=== PATIENT | female | born 1955 | race Hispanic/Latino ===

== ENCOUNTER → 2019-01-23 | Outpatient (CLI) | payer OTHER ==
[~2019-01-23] MED LIST: HYDR25TA PO; INSLAN SQ; LISI-613 PO; METF-446 PO; PIOG30TA10 PO
== END | disposition home or self-care (01) ==
LOC: RAH 08:30
PROVIDERS: ATTEND Family Medicine
DX: Z12.31 Encounter for screening mammogram for malignant neoplasm of breast (principal)
CPT/HCPCS: 77067

== ENCOUNTER → 2024-09-25 | Outpatient (CLI) | payer OTHER ==
[~2024-09-25] MED LIST changes: -LISI-613 PO; +LISI20TA24 PO
[2024-09-25 12:29] LABS: ALBUMIN 3.4 g/dL (3.5-5.0); BILIRUBIN,TOTAL 0.2 mg/dL (0.2-1.0); CREATININE 1.1 mg/dL (0.5-1.0); POTASSIUM 4.7 mmol/L (3.5-5.1); TOTAL PROTEIN, SERUM 6.4 g/dL (6.0-8.3)
== END | disposition home or self-care (01) ==
LOC: LAB 08:08
PROVIDERS: ATTEND Internal Medicine Cardiovascular Disease
DX: I10 Essential (primary) hypertension (principal)
CPT/HCPCS: 36415; 80053

== ENCOUNTER → 2024-12-14 | Outpatient (CLI) | payer OTHER ==
--- NOTE | 2024-12-19 00:52 | HMCSR ---
APPROVED REPORT EXAM: Two-dimensional and M-mode echocardiogram with Doppler and color Doppler. INDICATION ICD: R01.1 Cardiac murmur, unspecified 2D Dimensions RVDd3.7 cmLVEF(%)64.7 (>50%)LVED Vol(simp.)108.0 mL IVSd1.4 (0.7-1.1cm)FS(%)35 %LVES Vol(simp.)45.0 mL LVDd4.2 (3.8-5.6cm)Ao Root(2D)3.4 (2.0-3.7cm)LVEF(%, simp.)58 % PWd1.2 (0.7-1.1cm)LVOT diam2.1 (1.8-2.4cm)LA ESV INDEX (BP)33.25 mL/m2 LVDs2.7 (2.5-4.0cm)IVC diam1.7 cm Aortic Valve AoV Vmax1.7 m/Zane Peak GR11.7 mmHgLVOT Vmax1.3 m/s AoV VTI0.4 mAo Mean GR7.1 mmHgLVOT VTI0.35 m KEVIN (VMAX)2.8 cm2AVA (VTI) 2.8 cm2 Mitral Valve MV E Vmax97.1 cm/sDECEL Dbvf582 ms MV A Jaki629.1 cm/sP 1/2 T61 ms E/A ratio0.8MVA (PHT)3.6 cm2 MR Max PG101 mmHg TDI E/E' Zwyqdh38.2E/E' Sxpflyl50.5 Pulmonary Valve PV Vmax1.4 m/sPV VTI0.28 mPV Mean GR4 mmHg PV Peak GR7.5 mmHg Tricuspid Valve TR Vmax3.0 m/sRAP (EST) 3 zjNkNTBS20.6 mmHg TR Peak GR35.6 mmHg Left Ventricle The left ventricle is normal in size. No regional wall motion abnormalities noted. Mild concentric le ft ventricular hypertrophy. Left ventricular systolic function is normal, estimated LVEF is 55-60%. G rade 1 diastolic dysfunction Right Ventricle The right ventricle is normal size. The right ventricular systolic function is normal. Atria The left atrium is mildly dilated. The right atrium size is normal. Aortic Valve Aortic valve is trileaflet. The leaflets are mildly thickened and calcified. Trace aortic regurgitati on. There is aortic sclerosis without stenosis. Mitral Valve Mild mitral annular calcification is noted. The leaflets are mildly thickened and calcified. Trace mi tral regurgitation. There is no mitral valve stenosis. Tricuspid Valve The tricuspid valve is normal in structure and function. Mild tricuspid regurgitation. RVSP is 36 mmH g. Pulmonic Valve Pulmonic valve is not well visualized. Great Vessels The aortic root is normal in size. The IVC is normal in size and collapses >50% with inspiration. Pericardium No pericardial effusion. Conclusion The left atrium is mildly dilated. Mild concentric left ventricular hypertrophy. No regional wall motion abnormalities noted. Left ventricular systolic function is normal, estimated LVEF is 55-60%. Grade 1 diastolic dysfunction Trace aortic regurgitation. Trace mitral regurgitation. Mild tricuspid regurgitation. PASP is 39 mmHg. No pericardial effusion.
--- NOTE | 2024-12-19 01:08 | HMCSR ---
APPROVED REPORT Bilateral Lower Extremity Venous Study for DVT., Venous Competence. Indications Ulcer, i87.1,i87.2 Vein Imaging CFV (R): Normal flow, augmentation and compression. No evidence of DVT. 13.5mm 978ms of reflux. SFJ (R): Normal flow, augmentation and compression. No evidence of DVT. FEM (R): Normal flow, augmentation and compression. No evidence of DVT. POP (R): Normal flow, augmentation and compression. No evidence of DVT. DFV (R): Normal flow, augmentation and compression. No evidence of DVT. PTV (R): Normal flow, augmentation and compression. No evidence of DVT. Peroneals (R): Not VisualizedCFV (L): Normal flow, augmentation and compression. No evidence of DVT. 10.7mm 706ms of reflux. SFJ (L): Normal flow, augmentation and compression. No evidence of DVT. FEM (L): Normal flow, augmentation and compression. No evidence of DVT. POP (L): Normal flow, augmentation and compression. No evidence of DVT. DFV (L): Normal flow, augmentation and compression. No evidence of DVT. PTV (L): Normal flow, augmentation and compression. No evidence of DVT. Peroneals (L): Not Visualized Technologist Impression Deep veins of the bilateral lower extremities appear patent and compressible without thrombus. No evidence of deep venous reflux. Superficial venous insufficiency in the RGSV and LGSV junction. RGSV junction 68mm 1144ms thigh 5.4mm 0.0ms knee 5.0mm 0.0ms calf 4..4mm 533ms RSSV prox 2.5mm 0.0ms mid 2.7mm 0.0ms LGSV junction 6.3mm 628ms thigh 4.4mm 0.0ms knee 4.1mm 0.0ms calf 3.6mm 0.0ms LSSV prox 3.7mm 0.0ms mid 2.3mm 0.0ms Conclusion Deep veins of the bilateral lower extremities appear patent and compressible without thrombus. There is deep venous reflux seen in the right CFV (978ms). There is no significant deep venous reflu x seen in the left lower extremity. There is significant superficial venous reflux seen in the RGSV (junction 68mm 1144ms, calf 4..4mm 53 3ms) and LGSV (junction 6.3mm 628ms). The above-mentioned findings are diagnostic for chronic venous insufficiency affecting the bilateral lower extremities. Conclusion Deep veins of the bilateral lower extremities appear patent and compressible without thrombus. There is deep venous reflux seen in the right CFV (978ms). There is no significant deep venous reflu x seen in the left lower extremity. There is significant superficial venous reflux seen in the RGSV (junction 68mm 1144ms, calf 4..4mm 53 3ms) and LGSV (junction 6.3mm 628ms). The above-mentioned findings are diagnostic for chronic venous insufficiency affecting the bilateral lower extremities.
== END | disposition home or self-care (01) ==
LOC: SHCH 09:35
PROVIDERS: ATTEND Internal Medicine Cardiovascular Disease
DX: I08.3 Combined rheumatic disorders of mitral, aortic and tricuspid valves (principal); I70.0 Atherosclerosis of aorta; R01.1 Cardiac murmur, unspecified; I87.1 Compression of vein
CPT/HCPCS: 93306; 93970

== ENCOUNTER 2025-03-14 06:06 | Day surgery (SDC) | payer OTHER ==
[2025-03-09 13:10] LABS: BASOPHILS # (AUTO) 0.05 K/uL (0.00-0.20); BASOPHILS % (AUTO) 0.6 % (0.0-5.0); EOSINOPHILS # (AUTO) 0.24 K/uL (0.00-0.70); EOSINOPHILS % (AUTO) 3.1 % (0.0-8.0); HEMATOCRIT 38.5 % (36-48); IMMATURE GRANULOCYTE ABSOLUTE 0.03 K/uL (0-1); LYMPHOCYTES # (AUTO) 1.5 K/uL (1.0-4.8); MEAN CORPUSCULAR HEMOGLOBIN 26.1 pg (27.0-33.0); MEAN CORPUSCULAR HGB CONC 30.1 g/dL (32.0-36.0); MEAN CORPUSCULAR VOLUME 86.7 fL (79-99); MONOCYTES # (AUTO) 0.8 K/uL (0.1-1.0); MONOCYTES % (AUTO) 10.8 % (3.0-13.0); NEUTROPHILS # (AUTO) 5.1 K/uL (1.8-7.7); NEUTROPHILS % (AUTO) 66.1 % (40.0-77.0); PLATELET COUNT (AUTO) 285 K/uL (130-400); RED BLOOD CELL COUNT(AUTO) 4.44 MIL/uL (4.00-5.50); RED CELL DISTRIBUTION WIDTH 13.8 % (11.0-15.5); WHITE BLOOD COUNT (AUTO) 7.7 K/uL (4.8-10.8)
[2025-03-09 13:19] LABS: POTASSIUM 4.6 mmol/L (3.5-5.1)
[2025-03-09 13:22] VITALS: BP 201/56; PULSE 69; RESP 18; TEMP 98.2
[2025-03-09 13:23] LABS: INR 0.96 (0.85-1.15); PROTHROMBIN TIME 10.2 SEC (9.6-11.6)
[2025-03-09 13:24] LABS: PARTIAL THROMBOPLASTIN TIME 27.3 SEC (26.3-35.5)
[~2025-03-14] VITALS: Ht 160 cm; Wt 127.9 kg
[2025-03-14] VITALS (7 sets, daily range): BP systolic 151–158; BP diastolic 40–46; PULSE 70–76; RESP 16–22; TEMP 97.3–97.8
[~2025-03-14 06:06] MED LIST changes: +ASCO100031 PO; +BRIM5DRO5 OU; +CHOL100040 PO; +CLOB30CR5 TP; +CYAN250010 PO; +EVOL140S2 SQ; +GABA-529 PO; +GLIM1TAB56 PO; -HYDR25TA PO; -INSLAN SQ; +INSU10VI3 SQ; +MAGN250T10 PO; -METF-446 PO; -PIOG30TA10 PO; +PYRI100T10 PO; +SEMA1PEN3 SQ; +SITA100T12 PO; +TORS20TA4 PO
[2025-03-14] MEDS: 0.9%NACL 1000ML 1,000 ML IV SCH (07:39)
[2025-03-14] MEDS ORDERED: IODIXANOL 320 MG/ML 100 ML VIAL ONE (08:24)
[2025-03-14] MEDS ORDERED: LIDOCAINE HCL 400MG/20ML VIAL ONE (08:24)
[2025-03-14] MEDS ORDERED: NITROGLYCERIN 50MG VIAL ONE (08:25)
[2025-03-14] MEDS ORDERED: HEParin-NS 1,000 UNIT/500 ML 1,000 ML IV ONE (08:25)
[2025-03-14] MEDS ORDERED: HEParin 10,000 UNIT/10ML (1,000 UNIT/ML) VIAL ONE (08:25)
[2025-03-14] MEDS ORDERED: FENTanyl CITRate PF 50 MCG/1 ML 2ML VIAL ONE (08:40)
[2025-03-14] MEDS ORDERED: MIDAZOLAM HCL 1 MG/ML 2ML VIAL ONE (08:40)
[2025-03-14] MEDS ORDERED: LAbetaLOL 20MG VIAL ONE (08:51)
[2025-03-14] MEDS ORDERED: hydrALAZine 20MG/ML VIAL ONE ×2 (08:52→10:03)
[2025-03-14] MEDS ORDERED: ATROPINE 1MG SYG IVP ONE (09:21)
[2025-03-14] MEDS ORDERED: ondanSETRON 4MG INJ ONE ×2 (09:41→10:19)
[2025-03-14] MEDS ORDERED: cloPIDOgrel 300MG TAB ONE (10:08)
[2025-03-14] MEDS ORDERED: ASPIRIN 325MG EC TAB PO ONE (10:08)
--- NOTE | 2025-03-14 10:15 | PRN ---
Procedure Note INDICATION FOR PROCEDURE: [] Iliac vein compression Severe venous insufficiency PROCEDURE: [] Conscious sedation Bilateral common femoral vein sheath placement 9 Welsh Bilateral common femoral venogram Intravascular ultrasound of IVC, bilateral common iliac external iliac and common femoral veins Angioplasty and stent placement to right common iliac and external iliac vein with the use of a 16 mm x 100 mm Medtronic venous self expanding stent DATE OF PROCEDURE: March 14, 2025 RETREAD BUILDER: Patel Fatima MD, F.A.C.C. PROCEDURE NOTE: [] Patient was electively brought to the catheterization suite and prepped and draped in sterile fashion. An IV was started if not already in place and both groins were exposed for venous access. 2% lidocaine was used for local anesthesia and then a micro puncture kit was used to gain access ultrasound-guided into the left common femoral vein and once free flow blood was seen modified Seldinger technique was utilized to place a 9 Welsh sheath into the left common femoral vein. Next a venogram was performed. Next a 0.035 in glidewire was then placed into the IVC and an IVUS catheter was then used to interrogate the IVC, left common iliac external iliac and common femoral vein with findings as described below. Next IVUS catheter was removed omni flush catheter was then used to direct a 0.035 in glidewire into the right common femoral vein then the Omni flush catheter was advanced a venogram was performed Omni flush catheter was then removed over wire and then an intravascular ultrasound catheter was then used to engage interrogate the right common femoral vein external iliac vein and common iliac vein with findings as described below. Patient was noted to have a significant degree of compression involving her right external iliac vein at greater than 60% therefore I then gained access to the right common femoral vein using the glidewire as my landmark and then placed a 9 Welsh sheath in the right common femoral vein using modified Seldinger technique. Next a repeat venogram was performed for landmark purposes as well as IVUS interrogation again for landmark purposes of stent placement. Next a 16 mm by 100 mm Medtronic venous self expanding stent was then placed into the right common iliac vein and right external iliac vein and deployed. This was then post dilated in its entirety with a 16 mm balloon to nominal pressure. Follow up intravascular ultrasound of stented region reveals excellent stent apposition with no residual compression noted. Vascade closure systems were used for closure of both access points and common femoral veins and no complications occurred. FINDINGS: [] 38% compression left common iliac and external iliac vein 60% compression right external iliac vein IMPRESSION: [] Successful stent placement to right common iliac and external iliac vein with the use of a 16 mm x 100 mm Medtronic venous self expanding stent PLAN: [] Dual antiplatelet therapy 30 days Clopidogrel 75 mg daily for 90 days No heavy lifting 5 lb or greater for 3 days No driving for 24 hours PATEL FATIMA MD March 14, 2025 10:15
[2025-03-14] MEDS ORDERED: DEXTROSE 50%-WATER 50 ML DISP.SYRIN IV PRN (10:30)
[2025-03-14] MEDS ORDERED: GLUCAGON 1MG KIT 1 MG ML IM PRN (10:30)
[2025-03-14] MEDS ORDERED: ASPI-1443 PO (11:28)
[2025-03-14] MEDS ORDERED: CLOP-31 PO (11:29)
[2025-03-14] MEDS ORDERED: INSULIN humuLIN R 100 UNIT/ML 3ML SQ SCH (11:30)
--- NOTE | 2025-03-14 12:15 | NUR ---
Full and complete Discharge Instructions given to Patient and Family both verbally and in writing.. All questions answered.Voiced understanding to Venogram procedure precautions and Follow Up. PIV removed with catheter tip intact. Denies c/o pain or discomfort. W/C to POV with Family to home.
== END 2025-03-14 12:15 | disposition home or self-care (01) ==
LOC: DAH 06:06
PROVIDERS: ATTEND Internal Medicine Cardiovascular Disease
DX: I87.1 Compression of vein (principal); I87.2 Venous insufficiency (chronic) (peripheral); I10 Essential (primary) hypertension; E78.5 Hyperlipidemia, unspecified; E11.9 Type 2 diabetes mellitus without complications; Z86.73 Personal history of transient ischemic attack (TIA), and cerebral infarction without residual deficits; Z79.01 Long term (current) use of anticoagulants; Z79.899 Other long term (current) drug therapy; Z90.49 Acquired absence of other specified parts of digestive tract; Z90.710 Acquired absence of both cervix and uterus; Z88.8 Allergy status to other drugs, medicaments and biological substances
CPT/HCPCS: 80048; 85025; 85610; 85730; 36415; 37238; 75822; 37252; 37253 ×5; 82948 ×2; C1876; C1725; C1769; C1894 ×3; C1760 ×2; C1753; J3010; J3490 ×3; J7030; J0360 ×2; J1644 ×2; J2250; J2405 ×2; Q9967; A4215 ×2; A4222; A4221; A4663; A4216; A4606; A4223 ×3; A4554; A4335 ×2; 36012; 99156; 99157; J0461